=== PATIENT | female | born 1955 | race Caucasian/White ===

== ENCOUNTER 2019-10-22 10:11 | Emergency (ER) | payer OTHER ==
[~2019-10-22] VITALS: Ht 162.6 cm; Wt 63.5 kg
[2019-10-22] MEDS ORDERED: TAPAZOLE5 MG PO (10:21)
[2019-10-22] MEDS ORDERED: LISINOPRIL2.5 MG PO (10:21)
[2019-10-22] MEDS ORDERED: NORCO 5-325 TA1 EAC1 PO (11:13)
[2019-10-22 11:25] VITALS: BP 139/46
== END 2019-10-22 11:26 | disposition home or self-care (01) ==
LOC: M.ERS 10:11
DX: S90.31XA Contusion of right foot, initial encounter (principal); I10 Essential (primary) hypertension; E03.9 Hypothyroidism, unspecified; F17.210 Nicotine dependence, cigarettes, uncomplicated; W10.8XXA Fall (on) (from) other stairs and steps, initial encounter; Y93.89 Activity, other specified; Y92.89 Other specified places as the place of occurrence of the external cause; Y99.8 Other external cause status